=== PATIENT | male | born 1930 | race Caucasian/White ===

== ENCOUNTER 2016-12-29 14:49 | Day surgery (SDC) | payer OTHER ==
[~2016-12-29] VITALS: Ht 182.9 cm; Wt 63.5 kg
[~2016-12-29 14:49] MED LIST: COQ10 PO; LOPRESSOR25 MG PO; PALMETTO PO; SYNTHROID50 MCG PO; XANAX0.25 MG PO; XARELTO20 MG PO; ZOCOR10 MG PO
[2016-12-29 15:45] VITALS: BP 154/92
[2016-12-29 21:18] VITALS: BP 179/87
== END 2016-12-29 21:37 | disposition home or self-care (01) ==
LOC: SDC 14:49
DX: H33.012 Retinal detachment with single break, left eye (principal); H33.42 Traction detachment of retina, left eye; I48.3 Typical atrial flutter; I48.0 Paroxysmal atrial fibrillation; I10 Essential (primary) hypertension; E03.9 Hypothyroidism, unspecified; E78.5 Hyperlipidemia, unspecified; E78.00 Pure hypercholesterolemia, unspecified; Z79.01 Long term (current) use of anticoagulants; Z87.891 Personal history of nicotine dependence; Z88.0 Allergy status to penicillin; Z80.3 Family history of malignant neoplasm of breast; Z82.49 Family history of ischemic heart disease and other diseases of the circulatory system
CPT/HCPCS: J0690; J0713; J1100; J1120; J2405; J2795; J3010; J3300